=== PATIENT | female | born 1980 | race Caucasian/White ===

== ENCOUNTER 2016-09-20 17:58 | Emergency (ER) | payer OTHER | END 2016-09-20 19:50 | disposition home or self-care (01) | LOC: ER 17:58 | DX: R42 Dizziness and giddiness (principal); Z98.51 Tubal ligation status; Z79.899 Other long term (current) drug therapy; Z88.0 Allergy status to penicillin; Z88.1 Allergy status to other antibiotic agents; Z88.5 Allergy status to narcotic agent ==